=== PATIENT | female | born 1965 | race Caucasian/White ===

== ENCOUNTER → 2024-03-12 08:20 | Outpatient (REF) | payer MEDICARE, OTHER, SELFPAY | LOC: WDC 08:20 | PROVIDERS: ATTENDING PHYSICIAN Nurse Practitioner | DX: Z12.31 Encounter for screening mammogram for malignant neoplasm of breast (principal) | CPT/HCPCS: 77063; 77067 ==

== ENCOUNTER → 2024-05-10 06:40 | Day surgery (SDC) | payer MEDICARE, OTHER, SELFPAY | LOC: GI 06:40 | PROVIDERS: ATTENDING PHYSICIAN Internal Medicine Gastroenterology | DX: K31.89 Other diseases of stomach and duodenum (principal); R13.10 Dysphagia, unspecified; R12 Heartburn; K44.9 Diaphragmatic hernia without obstruction or gangrene; K31.9 Disease of stomach and duodenum, unspecified; K21.00 Gastro-esophageal reflux disease with esophagitis, without bleeding | CPT/HCPCS: 43239; 88305; 88342 ==

== ENCOUNTER → 2025-03-13 11:28 | Outpatient (REF) | payer MEDICARE, OTHER, SELFPAY | LOC: WDC 11:28 | PROVIDERS: ATTENDING PHYSICIAN Nurse Practitioner | DX: Z12.31 Encounter for screening mammogram for malignant neoplasm of breast (principal) | CPT/HCPCS: 77063; 77067 ==